=== PATIENT | female | born 1960 | race African-American/Black ===

== ENCOUNTER → 2016-12-25 | Outpatient (CLI) | payer OTHER | LOC: OD 10:26 | PROVIDERS: ATTEND Family Medicine | DX: M54.5 Low back pain (principal); M25.562 Pain in left knee; M47.897 Other spondylosis, lumbosacral region | CPT/HCPCS: 72110 ==

== ENCOUNTER → 2017-01-11 | Outpatient (CLI) | payer OTHER | LOC: RAD 08:59 | PROVIDERS: ATTEND Family Medicine | DX: R31.9 Hematuria, unspecified (principal); D72.828 Other elevated white blood cell count | CPT/HCPCS: 74178 ==

== ENCOUNTER → 2018-08-18 | Outpatient (CLI) | payer OTHER ==
--- NOTE | 2018-08-18 08:28 | WOMENS IMAGING REPORT ---
EXAM DESCRIPTION: TRANSVAGINAL ULTRASOUND COMPLETED DATE/TIME: 08/18/2018 8:11 am REASON FOR STUDY: ABDOMINAL SWELLING, MASS AND LUMP M85.9 DISORDER OF BONE DENSITY AND STRUCTURE, U NSPECIFIED Z12.31 ENCNTR SCREEN MAMMOGRAM FOR MALIGNANT NEOPLASM OF JASON R19.09 OTHER INTRA-ABDOMINA L AND PELVIC SWELLING, MASS AND L COMPARISON: CT abdomen pelvis dated 01/11/2017 TECHNIQUE: Dynamic and static grayscale images acquired of the pelvis via transvaginal approach and recorded on PACS. Additional selected color Doppler and spectral images recorded. LIMITATIONS: None. FINDINGS: UTERUS: Prior hysterectomy.ENDOMETRIAL STRIPE: No focal or generalized thickening. No mass es. CERVIX: No nabothian cysts. RIGHT OVARY AND DOPPLER: Ovary not visualized. LEFT OVARY AND DOPPLER: Ovary not visualized. FREE FLUID: None noted. OTHER: No other significant finding. IMPRESSION: Prior hysterectomy. The ovaries are not identified. No pelvic masses. TECHNICAL DOCUMENTATION: JOB ID: [id number] [employer]- All Rights Reserved Rev-04/08 Reading location - IP/workstation name: [email or web address]
--- NOTE | 2018-08-18 08:33 | WOMENS IMAGING REPORT ---
EXAM DESCRIPTION: BONE DENSITY HIP/SPINE COMPLETED DATE/TIME: 08/18/2018 7:52 am REASON FOR STUDY: DISORDER OF BONE DENSITY AND STRUCTURE M85.9 DISORDER OF BONE DENSITY AND STRUCTU RE, UNSPECIFIED Z12.31 ENCNTR SCREEN MAMMOGRAM FOR MALIGNANT NEOPLASM OF JASON R19.09 OTHER INTRA-ABD OMINAL AND PELVIC SWELLING, MASS AND L COMPARISON: May 2014 TECHNIQUE: Dual-Energy X-ray Absorptiometry (DEXA) of the AP Spine and Hip. LIMITATIONS: None. FINDINGS: LUMBAR SPINE: The bone mineral density (BMD) measured from L1-L4 in the AP projection correlates with a T-score of -0.6, which is normal as defined by the World Health Organization. 4.1% increase as compared to the previous study HIP: The bone mineral density (BMD) measured in the left hip correlates with a T-score of -1.3, which is o steopenia as defined by the World Health Organization. -4.7% decrease as compared to the previous st udy IMPRESSION: 1. LUMBAR SPINE: Normal 2. HIP: Osteopenia COMMENT: The World Health Organization defines low BMD as follows: T-score: Normal: Greater than -1.0 Osteopenia: Between -1.0 and -2.5 Osteoporosis: Less than -2.5 without fractures Established osteoporosis: Less than -2.5 with fractures In general, you may wish to consider: Diagnosis Treatment Follow-up DEXA Normal BMD Prevention 2-3 years Osteopenia Prevention/Therapy 1-2 years Osteoporosis Therapy Yearly TECHNICAL DOCUMENTATION: JOB ID: [id number] [employer]- All Rights Reserved Reading location - IP/workstation name: [email or web address]
--- NOTE | 2018-08-18 09:08 | WOMENS IMAGING REPORT ---
EXAM DESCRIPTION: 3D SCREENING MAMMO BILAT COMPLETED DATE/TIME: 08/18/2018 7:52 am REASON FOR STUDY: SCREENING MAMMO M85.9 DISORDER OF BONE DENSITY AND STRUCTURE, UNSPECIFIED Z12.31 ENCNTR SCREEN MAMMOGRAM FOR MALIGNANT NEOPLASM OF JASON R19.09 OTHER INTRA-ABDOMINAL AND PELVIC SWELL ING, MASS AND L COMPARISON: 06/11/2014 and 05/23/2010. TECHNIQUE: Standard craniocaudal and mediolateral oblique views of each breast recorded using digita l acquisition and breast tomosynthesis. LIMITATIONS: None. FINDINGS: No masses, calcifications or architectural distortion. No areas of suspicion. Read with the assistance of CAD. .[facility] - R2 Cenova Version 1.3 .[facility] - R2 Cenova Version 1.3 .[facility] - R2 Cenova Version 2.4 .[facility] [place] R2 Cenova Version 2.4 .[facility] - R2 [facility]ide Version 9.2 IMPRESSION: NORMAL MAMMOGRAM. BIRADS 1. BREAST DENSITY: c. The breasts are heterogeneously dense, which may obscure small masses. BIRAD: 1 NEGATIVE RECOMMENDATION: ROUTINE SCREENING COMMENT: The patient has been notified of the results by letter per SA requirements. Additional no tification policies are in place for contacting patient with suspicious or incomplete findings. Quality ID #[id number]: The [employer] recommends an annual screening mammogram for women aged 40 years or over. This facility utilizes a reminder system to ensure that all patients receive reminder letters, and/or direct phone calls for appointments. This includes reminders for routine scr eening mammograms, diagnostic mammograms, or other Breast Imaging Interventions when appropriate. Th is patient will be placed in the appropriate reminder system. The [employer] (ACR) has developed recommendations for screening MRI of the breast s in certain patient populations, to be used in conjunction with mammography. Breast MRI surveillanc e may be appropriate for women with more than 20% lifetime risk of developing breast cancer as deter mined by genetic testing, significant family history of the disease, or history of mantle radiation f or Hodgkins Disease. ACR Practice Guidelines 2008. DBT Technology DBT is a type of tomographic mammography. With conventional mammography, overlapping breast tissue ma y make lesions difficult to detect, even with good compression. DBT uses an x-ray tube that rotates a round the breast, taking images at different angles. These images are then combined to create thin sl ices of the breast that the radiologist can view as a 3D reconstruction. The [facility] unit can perform full-field digital mammograms (2D imaging); or DBT (3D imaging); or both, in a combination mode that quickly performs both the mammogram and the tomosynthesis scan while the breast is still compressed. RS [id number]: Fluoroscopic imaging is not utilized for breast tomosynthesis. TECHNICAL DOCUMENTATION: FINDING NUMBER: (1) ASSESSMENT: (1) JOB ID: [id number] [employer]- All Rights Reserved Reading location - IP/workstation name: [facility]-[email or web address]
== END ==
LOC: WI 07:04
PROVIDERS: ATTEND Family Medicine
DX: Z12.31 Encounter for screening mammogram for malignant neoplasm of breast (principal); M85.9 Disorder of bone density and structure, unspecified; R19.09 Other intra-abdominal and pelvic swelling, mass and lump
CPT/HCPCS: 76830; 77063; 77067; 77080

== ENCOUNTER → 2020-08-08 | Outpatient (CLI) | payer OTHER ==
[2020-08-08 10:43] LABS: ABSOLUTE LYMPHOCYTES (AUTO) 1.6 10^3/uL (0.5-4.7); ABSOLUTE MONOCYTES (AUTO) 0.3 10^3/uL (0.1-1.4); ABSOLUTE NEUT (AUTO) 1.3 10^3/uL (1.7-8.2); BASOPHILS % (AUTO) 0.6 % (0-2); EOSINOPHILS % (AUTO) 1.1 % (0-6); HEMOGLOBIN 13.1 g/dL (12.0-15.5); LYMPHOCYTES % (AUTO) 48.8 % (13-45); MEAN CORPUSCULAR HEMOGLOBIN 28.3 pg (27.0-33.4); MEAN CORPUSCULAR HGB CONC 33.7 g/dL (32.0-36.0); MEAN CORPUSCULAR VOLUME 84 fl (80-97); MONOCYTES % (AUTO) 10.7 % (3-13); PLATELET COUNT 235 10^3/uL (150-450); RED BLOOD COUNT 4.65 10^6/uL (3.72-5.28); RED CELL DISTRIBUTION WIDTH 13.8 % (11.5-14.0); SEGMENTED NEUTROPHILS % (AUTO) 38.8 % (42-78); TOTAL CELLS COUNTED % (AUTO) 100 %; WHITE BLOOD COUNT 3.2 10^3/uL (4.0-10.5)
[2020-08-08 10:51] LABS: ALBUMIN 4.6 g/dL (3.5-5.0); ALKALINE PHOSPHATASE 57 U/L (38-126); ANION GAP 8 (5-19); ASPARTATE AMINO TRANSFERASE 28 U/L (14-36); BILIRUBIN,DIRECT 0.2 mg/dL (0.0-0.4); BILIRUBIN,TOTAL 0.4 mg/dL (0.2-1.3); BLOOD UREA NITROGEN 10 mg/dL (7-20); CALCIUM 9.6 mg/dL (8.4-10.2); CARBON DIOXIDE 33 mmol/L (22-30); CHLORIDE 100 mmol/L (98-107); CHOLESTEROL 182.54 mg/dL (0-200); GLUCOSE 85 mg/dL (75-110); POTASSIUM 4.5 mmol/L (3.6-5.0); TRIGLYCERIDES 90 mg/dL (<150)
[2020-08-08 11:02] LABS: DIRECT LDL 71 mg/dL (<100)
== END ==
LOC: OD 09:12
PROVIDERS: ATTEND Family Medicine
DX: E55.9 Vitamin D deficiency, unspecified (principal); I10 Essential (primary) hypertension; M85.9 Disorder of bone density and structure, unspecified; E16.2 Hypoglycemia, unspecified; D70.9 Neutropenia, unspecified; Z79.899 Other long term (current) drug therapy
CPT/HCPCS: 36415; 80053; 80061; 82306; 83036; 84443; 85025